=== PATIENT | male | born 1955 | race African-American/Black ===

== ENCOUNTER 2016-11-11 08:15 | Day surgery (SDC) | payer OTHER ==
[~2016-11-11 08:15] MED LIST: Lidocaine 2.5%/Prilocain 2.5%* 5 GM TUBE ONE
[2016-11-11] MEDS ORDERED: Bupivacaine 0.5% SDV PF* 30 ML VIAL ONE (08:18)
[2016-11-11 10:44] VITALS: BP 127/76
--- NOTE | 2016-11-12 02:58 | OP ---
DATE OF OPERATION: 11/11/16 [facility] DATE OF : 57 SURGEON: Carl Stephens MD [employer] ASSEMBLER: MEDHAT Jama ANESTHESIOLOGIST: None. ANESTHESIA: Local only with Marcaine 0.5% digital block. PRE-OP DIAGNOSIS: Left small finger mucous cyst. POST-OP DIAGNOSIS: Left small finger mucous cyst. OPERATIVE PROCEDURE: 1. Excision of left small finger mucous cyst and DIP joint periarticular osteophytes. INDICATIONS: Crow is a 60-year-old male who has a mucous cyst over the dorsal aspect of the left DIP joint. This is associated with a large central dorsal osteophyte. 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 He also has another one on the contralateral thumb. We had talked about risks and benefits. He is desired to have the left small finger mucous cyst excised. ESTIMATED BLOOD LOSS: 5 mL. COMPLICATIONS: None. FINDINGS: As expected. DESCRIPTION OF PROCEDURE: Crow was seen in the preoperative area. The correct side, site, and procedure were identified. We had a time-out. I then performed a digital block to left small finger with 10 to 15 cc of 0.5% plain Marcaine. He tolerated this well. We then waited several minutes and then came back to the operating room and the arm was prepped and draped in the usual fashion. A formal time-out was performed. I began by placing a Tourni-Cot on the left small finger to exsanguinate the digit and this was left proximally as a tourniquet throughout the procedure. I then made an H-shaped incision with the transverse limb centered over the dorsal DIP joint. Full thickness flaps were raised directly after the paratenon dorsally both distally and proximally. The flaps were sewn back with a 5-0 nylon. At this point, there was a significant ganglion cyst protruding from the dorsal radial aspect of the DIP joint. I used a [place] blade and identified the interval between the distal terminal extensor tendon and the collateral ligament. The cyst was excised from this area together with some of the joint capsule. I then went to the ulnar side and did the same thing and removed some of the hypertrophic capsule there. I used a rongeur to nip back just a couple of osteophytes through these intervals. He was then left with a large dorsal central osteophyte protruding at the insertion site of the distal terminal extensor tendon. This was large and palpable preoperatively and he desired to have this removed. I freed it up a little bit with a [place] blade. I developed an interval between the terminal extensor tendon and the osteophyte. It was really right at the insertion site of the distal terminal extensor tendon. I was unable to get with a rongeur from either the radial or ulnar window and so I went ahead and used the [place] blade to make a longitudinal incision directly centered over the osteophyte. I carefully shelled out the osteophyte with the [place] blade preserving the vast majority of the terminal extensor tendon attachment. I then used the rongeur to remove the osteophyte. At this point, I examined it. I thought that I probably removed 80% of the osteophyte. I decided that to remove the remaining 20% would result in more detachment of the terminal extensor tendon and I did not think that this would be worth it as it would place him at risk for a postoperative mallet deformity. He was wide awake and so I discussed this with him and showed it to him and he agreed that we are to leave well enough alone and so we went ahead and irrigated out the wound. I then used some 5-0 Prolene sutures to repair the longitudinal split and the terminal extensor tendon. The finger was again irrigated. The skin flaps were released and then the skin was closed with some 5-0 nylon simple interrupted sutures. The Tourni-Cot was released and the finger pinked up immediately. The wound was then dressed with Xeroform, some 1 inch Eufemia, a dorsal Alumafoam splint was placed holding the DIP joint in extension and this was secured with some Coban. At this point, he was then taken to the recovery room in stable condition. POSTOPERATIVE PLAN: I am going to leave that DIP extension splint on for a week - and-a-half until I see him in the office, so the tendon split can heal some and then I am going to let him start moving the hand. [id number]/[facility] #: [id number] ULISES
== END 2017-01-27 17:38 | disposition home or self-care (01) ==
LOC: OREAST 08:15
PROVIDERS: ATTEND Orthopaedic Surgery Hand Surgery
DX: M67.442 Ganglion, left hand (principal); M25.742 Osteophyte, left hand
CPT/HCPCS: 88304; A9270-GY

== ENCOUNTER → 2017-01-27 14:33 | Day surgery (SDC) | payer OTHER ==
[~2017-01-27 14:33] MED LIST changes: +Bupivacaine 0.25% SDV* 30 ML ONE; +Lidocain 1% EPI 1:100,000 * 30 ML MDV ONE; +Lidocaine 1% INJ* 10 MG/ML 30 ML SDV ONE; -Lidocaine 2.5%/Prilocain 2.5%* 5 GM TUBE ONE
[2017-01-27 18:21] VITALS: BP 128/64
--- NOTE | 2017-01-28 14:43 | OP ---
DATE OF OPERATION: 01/27/17 - [facility] DATE OF : 57 SURGEON: Carl Stephens MD NETWORK MGR: MEDHAT Camacho ANESTHESIOLOGIST: None. ANESTHESIA: Local only with 1% plain lidocaine with bicarbonate followed by Marcaine at the end of the case. PRE-OP DIAGNOSIS: Right thumb dorsoradial ganglion cyst of the interphalangeal joint. POST-OP DIAGNOSIS: Right thumb dorsoradial ganglion cyst of the interphalangeal joint. OPERATIVE PROCEDURE: Excision of right thumb dorsoradial cyst of the interphalangeal joint. INDICATIONS: Crow is a patient whom I have been following for a while. We had done a prior mucocyst and osteophyte excision on the contralateral hand. He has been following with me for a while. He has had a mass over the dorsoradial aspect of the right thumb interphalangeal joint for quite some time. It waxes and wanes in size. It was getting to be quite uncomfortable for him and so he came to my office short time ago and asked that I excise it. We talked about risks and benefits, he elected to proceed. ESTIMATED BLOOD LOSS: 2 mL. COMPLICATIONS: None. FINDINGS: As expected. DESCRIPTION OF PROCEDURE: Crow was sent to the preoperative holding area. We had a time-out and then I anesthetized the operative area with 1% plain lidocaine with bicarbonate. Short time later, we came back to the operating room and the arm was prepped and draped in the usual fashion and formal time- out was performed. I exsanguinated the finger with the Tourni-Cot and left on proximally as a tourniquet for the procedure. I then made a longitudinal mid axial incision centered over the IP joint on the radial side of the right thumb. This was T'd back over the interphalangeal joint transversely. Full thickness flaps were raised right off the peritenon. The radial collateral ligament was identified. I identified an outpouching of the capsular tissue right up the typical window between the collateral ligament and the extensor tendon. I went ahead and used the havasupai blade and excised this and sent it off to the lab as a specimen. I then removed any remaining cystic like and capsular material from the area including under the collateral ligament and little bit deep to the extensor tendon. There was a dorsal osteophyte on the distal aspect of the proximal phalanx that I excised with a rongeur. Once I had this area completely cleaned up, I irrigated it out and skin was closed with 5-0 nylon suture. The Tourni-Cot was released and the thumb pinked up immediately. The wound was dressed with Xeroform, 1-inch Eufemia, and then a Coban dressing was applied. Prior to placing dressings, I had supplemented the digital block with 0.25% plain Marcaine. After dressings were applied, he was taken to the recovery room in stable condition. [id number]/[facility] #: [id number] [facility] HOSPITALJaylen
== END | disposition home or self-care (01) ==
LOC: OREAST 14:33
PROVIDERS: ATTEND Orthopaedic Surgery Hand Surgery
DX: M67.441 Ganglion, right hand (principal)
CPT/HCPCS: 88305; J2001

== ENCOUNTER 2017-05-06 10:44 | Emergency (ER) | payer OTHER ==
--- NOTE | 2017-05-06 12:05 | UC ---
Respiratory Complaint HPI - HPI Summary HPI Summary: CHEST CONGESTION AND TIGHTNESS WITH PRODUCTIVE COUGH GETTING WORSE FOR 4 DAYS. NO FEVER, ST, EAR PAIN, N/V/D. - History of Current Complaint Chief Complaint: UCRespiratory Stated Complaint: CHEST CONGESTION Time Seen by Provider: 05/06/17 11:55 Hx Obtained From: Patient Onset/Duration: Gradual Onset, Lasting Days, Still Present Timing: Constant Severity Initially: Moderate Severity Currently: Moderate Pain Intensity: 2 Pain Scale Used: 0-10 Numeric Character: Cough: Productive Aggravating Factors: Nothing Alleviating Factors: Nothing Associated Signs And Symptoms: Positive: Chills, Wheezing, URI. Negative: Fever - Allergies/Home Medications Allergies/Adverse Reactions: Allergies Allergy/AdvReac Type Severity Reaction Status Date / Time No Known Allergies Allergy Verified 05/06/17 11:48 Home Medications: Home Medications Cialis 1 tab PO 05/06/17 [History] PMH/Surg Hx/FS Hx/Imm Hx Previously Healthy: Yes - Surgical History Surgical History: Yes Surgery Procedure, Year, and Place: Right finger surger, index finger ganglion removal, RIGHT BUNIONECTOMY - Family History Known Family History: Negative: Hypertension - Social History Alcohol Use: Daily Alcohol Amount: ONE DAILY Substance Use Type: None Smoking Status (MU): Never Smoked Tobacco - Immunization History Most Recent Influenza Vaccination: 05/2012 Most Recent Tetanus Shot: does not remember Review of Systems Constitutional: Chills, Fatigue ENT: Negative Respiratory: Cough, Other - CHEST CONGESTION Cardiovascular: Negative Gastrointestinal: Negative All Other Systems Reviewed And Are Negative: Yes Physical Exam Triage Information Reviewed: Yes Appearance: Well-Appearing, No Pain Distress, Well-Nourished Vital Signs: Initial Vital Signs Temp 97.7 F 05/06/17 11:51 Pulse 87 05/06/17 11:51 Resp 20 05/06/17 11:51 BP 130/75 05/06/17 11:51 Pulse Ox 99 05/06/17 11:51 Vital Signs Reviewed: Yes Eyes: Positive: Conjunctiva Clear ENT: Positive: Hearing grossly normal, Pharynx normal, TMs normal Neck: Positive: Supple, Nontender, No Lymphadenopathy Respiratory: Positive: No respiratory distress, No accessory muscle use, Rhonchi Cardiovascular Exam: Normal Abdomen Description: Positive: Soft Musculoskeletal: Positive: No Edema Neurological: Positive: Alert Psychological: Positive: Age Appropriate Behavior Skin: Negative: rashes UC Diagnostic Evaluation - Laboratory O2 Sat by Pulse Oximetry: 99 Respiratory Course/Dx - Differential Dx/Diagnosis Provider Diagnoses: ACUTE BRONCHITIS Discharge - Discharge Plan Condition: Stable Disposition: HOME Prescriptions: Azithromycin [Azithromycin 500 MG TAB] 500 mg PO DAILY #5 tab predniSONE TAB* [Deltasone TAB*] 40 mg PO DAILY #10 tab Patient Education Materials: Acute Bronchitis (ED) Referrals: Roney Avelar MD [Primary Care Provider] - If Needed Additional Instructions: ACUTE BRONCHITIS We used to think antibiotics were necessary to treat bronchitis, but studies have shown that respiratory viruses cause the disease in the vast majority of cases. Like head colds, most cases of bronchitis get better without antibiotics. We may prescribe antibiotics if we believe bacteria are damaging your airways, or if there's high risk the bronchitis will worsen into pneumonia (such as for individuals with emphysema or other lung disease). Increase your fluid intake. A cool mist humidifier may make your lungs more comfortable. An expectorant (cough medicine that loosens phlegm) can help. Recovery from bronchitis can be somewhat slow, but you should not have any significant worsening or new fevers. As long as you can breathe easily and you continue to have steady improvement, it is not important how many days it takes you to get better. Call or return if you develop increasing fever, shortness of breath, chest pain , bloody sputum, or otherwise worsen. If you have not improved at all after several days, contact your primary care physician or return here.
[2017-05-06 12:15] VITALS: BP 130/75
== END 2017-05-06 12:28 | disposition home or self-care (01) ==
LOC: UCEAST 10:44
DX: J20.9 Acute bronchitis, unspecified (principal)
CPT/HCPCS: 99212; G0463